=== PATIENT | female | born 2000 | race Caucasian/White ===

== ENCOUNTER 2021-11-22 08:18 | Emergency (ER) | payer OTHER, SELFPAY ==
[2021-11-22 08:28] VITALS: BP 130/87; PULSE 65; RESP 18; TEMP 37.3; O2SAT 100
--- NOTE | 2021-11-22 08:28 | ED.FEMALEGU ---
HPI - Female Genitourinary General Chief complaint: Urogenital-Female Stated complaint: uti symptoms Time Seen by Provider: 11/22/21 08:28 Source: patient and RN notes reviewed History of Present Illness HPI Narrative: Patient is a 21-year-old female presents the urgent care with complaints of possible UTI. Patient states that last week she had lower abdominal cramping and started Azo and cranberry juice. Patient states it went away until last night early this morning when she developed some intermittent lower abdominal cramping, burning with urination and blood with wiping. Patient has a history of kidney stones and a UTI but it has been at least 3 years since a UTI and she was 10 with her kidney stones Patient denies any back pain, fever, nausea or vomiting. No other acute complaints. No acute distress noted. Patient aware of the plan of care. Some parts of this dictation were generated by voice recognition software and may contain typographical and/or grammatical inaccuracies. Related Data Allergies Allergy/AdvReac Type Severity Reaction Status Date / Time No Known Allergies Allergy Verified 11/22/21 08:53 Review of Systems Review of Systems: CONSTITUTIONAL: Denies fever, chills, or sweats. EYES: Denies visual changes, redness, or discharge. ENT: Denies rhinorrhea, congestion, sore throat, or otalgia. CARDIOVASCULAR: Denies chest pain, palpitations, or edema. RESPIRATORY: Denies cough or dyspnea. GASTROINTESTINAL: Denies abdominal pain, nausea, vomiting, or diarrhea. GENITOURINARY: Reports of dysuria and hematuria with suprapubic pressure SKIN: Denies rash or itching. MUSCULOSKELETAL: Denies back pain, joint pain, or myalgia. NEUROLOGIC: Denies headache, numbness, or weakness. All other systems reviewed are negative, except as documented in HPI. PMFSH Comments At the time of my signature, I reviewed and agree with the nursing past medical, surgical, social, and family history. There is no relevant family history pertinent to the patient complaint. Exam Narrative: GENERAL: This is a well-nourished, well-developed patient, in no apparent distress. HEAD: normocephalic, atraumatic. EYES: PERRL. Sclera clear/white. Vision is grossly intact. EARS: External ears normal NOSE: External nose normal with no obvious nasal discharge, nares without redness, no rhinorrhea. THROAT: Mucous membranes moist NECK: Neck supple CARDIOVASCULAR: Regular rate and rhythm without murmurs, gallops, or rubs. RESPIRATORY: Clear to auscultation. Breath sounds equal bilaterally. No wheezes, rales, or rhonchi. GASTROINTESTINAL: Abdomen soft, non-tender, nondistended. Bowel sounds are active. SKIN: warm, intact with no suspicious lesions or rash, good texture and turgor. NEURO: awake, alert, and oriented to person, place and time. There were no obvious focal neurologic abnormalities. EXTREMITIES: No clubbing, cyanosis, or edema. BACK: Negative CVA tenderness Course Course Level of Care: Express Care Visit Vital Signs Vital signs: Vital Signs Temperature 99.1 F 11/22/21 08:28 Pulse Rate 65 11/22/21 08:28 Respiratory Rate 18 11/22/21 08:28 Blood Pressure 130/87 11/22/21 08:28 Pulse Oximetry 100 11/22/21 08:28 Oxygen Delivery Room Air 11/22/21 08:28 Temperature 99.1 F 11/22/21 08:28 Pulse Rate 65 11/22/21 08:28 Respiratory Rate 18 11/22/21 08:28 Blood Pressure 130/87 11/22/21 08:28 Pulse Oximetry 100 11/22/21 08:28 Oxygen Delivery Room Air 11/22/21 08:28 Reviewed MDM - Female Genitourinary MDM Narrative Medical decision making narrative: Reviewed lab results with the patient. She is aware that urine analysis is indicative of a UTI with blood and bacteria. We will culture the urine and call if medication needs to be changed, based on culture results. Advised the patient complete the oral antibiotic regimen as prescribed. Be sure to eat and drink with medication. Stop the Azo and use the presc
== END 2021-11-22 09:05 | disposition home or self-care (01) ==
PROVIDERS: Emergency Provider Nurse Practitioner Family
DX: N39.0 Urinary tract infection, site not specified (principal)
CPT/HCPCS: 81003; 87086; 99213; G0463

== ENCOUNTER 2022-01-31 12:32 | Emergency (ER) | payer OTHER, SELFPAY ==
[2022-01-31 12:40] VITALS: BP 132/83; PULSE 81; RESP 16; TEMP 37.3; O2SAT 100
--- NOTE | 2022-01-31 12:43 | ED.SKABFB ---
HPI - Skin/Abscess/Foreign Bdy General Chief complaint: Skin/Abscess/Foreign Body Stated complaint: rash History of Present Illness HPI narrative: This is a 21-year-old that comes in complaining of a rash that she has had on her left leg on her calf patient states that she has been putting some cream on it that has not changed little bit itchy per patient. Patient states it started about a week ago Related Data Allergies Allergy/AdvReac Type Severity Reaction Status Date / Time No Known Allergies Allergy Verified 11/22/21 08:53 Review of Systems Review of Systems: Rash on left leg All systems reviewed & are unremarkable except as noted in HPI and below PMFSH Comments At time as signature, I have reviewed and agree with nursing past medical, social, surgical and family history. Please see nursing chart for further information. There is no relevant family history pertinent to the presenting complaint. Exam Narrative: GENERAL:Well-appearing, well-nourished, and in no acute distress. HEAD:Normocephalic, EYES: PERRLA ENT: Nares clear, no rhinorrhea or epistaxis. Mucous membranes moist. CHEST: Wheezing rise and fall of chest wall. No respiratory distress. HEART: Regular rate and rhythm. Normal peripheral pulses. ABDOMEN: Soft, nontender, nondistended EXTREMITIES: Normal range of motion. No edema. SKIN: Warm, dry, no rash. Left calf circular erythema with some fine pinpoint areas NEURO: No focal deficits. Alert and oriented x3. Course Course Level of Care: Express Care Visit Vital Signs Vital signs: Vital Signs Temperature 99.1 F 01/31/22 12:40 Pulse Rate 81 01/31/22 12:40 Respiratory Rate 16 01/31/22 12:40 Blood Pressure 132/83 01/31/22 12:40 Pulse Oximetry 100 01/31/22 12:40 Temperature 99.1 F 01/31/22 12:40 Pulse Rate 81 01/31/22 12:40 Respiratory Rate 16 01/31/22 12:40 Blood Pressure 132/83 01/31/22 12:40 Pulse Oximetry 100 01/31/22 12:40 MDM - Skin/Abscess/Foreign Bdy Differential Diagnosis Differential diagnosis: Likely abscess of skin or subcutaneous tissue, urticaria, herpes zoster, allergic reaction to drug, eczema, insect bites and contact dermatitis Discharge Plan Discharge Clinical Impression: Ringworm of body, Dermatophytosis Patient Disposition: Home, Self-Care Condition: Stable Instructions: Antibiotic Form, Tinea Capitis (ED) Additional Instructions: Keep area clean and dry apply cream as directed When you are around other people keep area covered this is highly contagious Make sure you wash your clothes in hot water Prescriptions: New clotrimazole-betamethasone 1-0.05 % cream 1 applic topical BID 14 Days Qty: 15 0RF Follow-up/Referrals: UNKNOWN,DOCTOR [Primary Care Provider] - Time of Disposition: 12:53
== END 2022-01-31 12:57 | disposition home or self-care (01) ==
PROVIDERS: Emergency Provider Nurse Practitioner Family
DX: B35.4 Tinea corporis (principal)
CPT/HCPCS: 99213; G0463